=== PATIENT | female | born 1945 | race Native Hawaiian/Other Pacific Islander ===

== ENCOUNTER 2019-04-02 12:24 | Outpatient (CLI) | payer OTHER ==
[2019-04-02 12:47] LABS: PLATELET COUNT 383 K/uL (152-353)
== END 2019-04-02 19:35 | disposition home or self-care (01) ==
LOC: LAB 12:24
PROVIDERS: Family Medicine
DX: I10 Essential (primary) hypertension (principal); E78.49 Other hyperlipidemia
CPT/HCPCS: 80053; 80061; 84439; 84443; 84481; 85027

== ENCOUNTER 2019-07-18 17:29 | Outpatient (CLI) | payer OTHER | END 2019-07-18 20:56 | disposition home or self-care (01) | LOC: LAB 17:29 | DX: R56.9 Unspecified convulsions (principal) | CPT/HCPCS: 82542 ==